=== PATIENT | female | born 1985 | race Caucasian/White ===

== ENCOUNTER 2021-12-17 10:23 | Outpatient (RCR) | payer OTHER, SELFPAY | END 2022-03-06 09:21 | disposition home or self-care (01) | LOC: ANHOBOP 10:23 | PROVIDERS: PCP Family Medicine; Visit Provider Obstetrics & Gynecology | DX: O26.859 Spotting complicating pregnancy, unspecified trimester (principal); Z3A.00 Weeks of gestation of pregnancy not specified | CPT/HCPCS: 36415; 84702 ==

== ENCOUNTER 2022-01-08 13:40 | Outpatient (RCR) | payer OTHER, SELFPAY ==
[2021-12-24 13:54] LABS: Beta HCG Quantitative 41.49 mIU/ML
[2022-01-08 14:25] LABS: Beta HCG Quantitative < 2.39 mIU/ML
== END 2022-03-24 23:59 | disposition home or self-care (01) ==
LOC: ANHLAB 13:40
PROVIDERS: PCP Family Medicine; Visit Provider Obstetrics & Gynecology
DX: O02.1 Missed abortion (principal); Z3A.00 Weeks of gestation of pregnancy not specified
CPT/HCPCS: 36415; 84702